=== PATIENT | female | born 1960 | race Caucasian/White ===

== ENCOUNTER 2018-11-17 16:38 | Emergency (ER) | payer MEDICARE ==
[~2018-11-17] VITALS: Ht 157.5 cm; Wt 78.0 kg
[~2018-11-17 16:38] MED LIST: ALPRAZOLAM0.5 MG PO; ASPIRIN325 MG PO; CRESTOR10 MG PO; FOLIC ACID1 MG PO; HYDROCHLOROTH12.5 M1 PO; HYDROCHLOROTH12.5 MG PO; LISINOPRIL40 MG PO; METFORMIN HCL1000 MG PO; OMEPRAZOLE20 MG PO; POTASSIUM99 M1 PO; POTASSIUM99 M2; PREMARIN0.3 MG PO; PRENATAL FORMU1 EAC1 PO; SERTRALINE HCL100 MG PO; SUPER B COMPLE150 MG PO; TRAZODONE HCL50 MG PO; VITAMIN D31000 UNI1 PO
--- OUTSIDE RECORDS SUMMARY | 2018-11-17 16:40 | XMS ---
PreManage Notification: SYBIL KEY Security Principal Administrative Clerk Events No recent Security Events currently on file CRITERIA MET - PDM CARE PROVIDERS MARIAA HINES Primary Care 03/10/2015-Current PHONE: Unknown Other Current PHONE: Unknown Shiva has no Care Guidelines for this patient. Rosanne VISIT COUNT (12 MO.) Carmela Lipscomb TOTAL 1 NOTE: Visits indicate total known visits. ED/UCC VISIT TRACKING (12 MO.) 11/17/2018 16:[address] [facility] TYPE: Emergency COMPLAINT: - SOB, RIB PAIN NON INJURY INPATIENT VISIT TRACKING (12 MO.) No inpatient visits to display in this time frame [email or web address]
[2018-11-17] MEDS ORDERED: ATORVASTATIN CA20 MG PO (17:06)
[2018-11-17] MEDS ORDERED: CEPHALEXIN500 MG PO (19:30)
[2018-11-17] MEDS ORDERED: NORCO 5-325 TA1 EACH PO (19:30)
== END 2018-11-17 20:16 | disposition home or self-care (01) ==
LOC: ED 16:38
DX: R10.9 Unspecified abdominal pain (principal); E11.9 Type 2 diabetes mellitus without complications; I10 Essential (primary) hypertension; E78.00 Pure hypercholesterolemia, unspecified; Z87.19 Personal history of other diseases of the digestive system; F17.200 Nicotine dependence, unspecified, uncomplicated; Z90.710 Acquired absence of both cervix and uterus; Z88.5 Allergy status to narcotic agent; Z79.84 Long term (current) use of oral hypoglycemic drugs; Z79.82 Long term (current) use of aspirin; Z79.899 Other long term (current) drug therapy
CPT/HCPCS: 74177; 80053; 81001; 83690; 85025; 96361; 99284-25; J0696; J2405; J7030; Q9967